=== PATIENT | female | born 1990 | race African-American/Black ===

== ENCOUNTER 2019-05-30 08:46 | Emergency (ER) | payer BC, OTHER ==
[~2019-05-30] VITALS: Ht 157.5 cm; Wt 54.4 kg
[~2019-05-30 08:46] MED LIST: ACETAMINOPHEN-1 EAC1 PO; NKM; OMEPRAZOLE20 M2 ORAL
[2019-05-30] MEDS ORDERED: NKM (08:48)
--- NOTE | 2019-05-30 08:50 | NUR ---
ED Nurse Note: Patient brought in by ambulance [id number] work c/o abdominal pain for 1 week. patient reports this has been her ongoing issue, but for the past 1 week, it was worse. patient reports she vomits after eating. patient is alert awake x4 ambulatory, breathing unlabored and even, speaking in full sentences.
[2019-05-30 08:56] VITALS: BP 121/91
--- NOTE | 2019-05-30 08:58 | NUR ---
ED Nurse Note: patient reports epigastic pain 7/10, nonradiating, actively vomiting yellow clear fluid, patient reports she was recently hospitalized about 1 month ago for the same issue.
[2019-05-30] MEDS ORDERED: Lidocaine 2% Visc 15ml soln ORAL ONE (09:15)
[2019-05-30] MEDS ORDERED: Mylanta II UD 30ml ORAL ONE (09:15)
[2019-05-30] MEDS ORDERED: Capsaicin 0.075% Cream TOPIC ONE (09:30)
[2019-05-30 09:39] LABS: ANION GAP 9 mmol/L (5-15); BLOOD UREA NITROGEN 8 mg/dL (7-18); CALCIUM 8.9 MG/DL (8.5-10.1); CARBON DIOXIDE 26 MMOL/L (21-32); CHLORIDE 107 MMOL/L (98-107); CREATININE 1.1 MG/DL (0.55-1.30); POTASSIUM 3.2 MMOL/L (3.5-5.1); SODIUM 142 MMOL/L (136-145)
[2019-05-30 09:40] LABS: BASOPHILS % (AUTO) 0.8 % (0.0-2.0); EOSINOPHILS % (AUTO) 2.8 % (0.0-3.0); HEMATOCRIT 35.6 % (37.0-47.0); HEMOGLOBIN 11.3 G/DL (12.0-16.0); LYMPHOCYTES % (AUTO) 24.8 % (20.0-45.0); MEAN CORPUSCULAR VOLUME 74 FL (80-99); MONOCYTES % (AUTO) 5.6 % (1.0-10.0); NEUTROPHILS % (AUTO) 65.9 % (45.0-75.0); PLATELET COUNT 362 K/UL (150-450); RED BLOOD COUNT 4.84 M/UL (4.20-5.40); RED CELL DISTRIBUTION WIDTH 12.4 % (11.6-14.8); WHITE BLOOD COUNT 9.4 K/UL (4.8-10.8)
--- NOTE | 2019-05-30 09:43 | NUR ---
ED Nurse Note: patient reports she is unable to give urine sample yet. IVF infusing as ordered.
[2019-05-30 09:44] LABS: ALANINE AMINOTRANSFERASE 25 U/L (12-78); ALBUMIN 3.7 G/DL (3.4-5.0); ALKALINE PHOSPHATASE 63 U/L (46-116); ASPARTATE AMINO TRANSFERASE 21 U/L (15-37); BILIRUBIN,TOTAL 0.9 MG/DL (0.2-1.0)
--- NOTE | 2019-05-30 09:52 | Emergency Room Report ---
History of Present Illness General Chief Complaint: Abdominal Pain Source: Patient, EMS Present Illness HPI This patient is brought in by EMS for epigastric pain and recurrent vomiting. The patient states that 4 years ago she did undergo a cholecystectomy. She states that she gets recurrent abdominal pain and vomiting episodes since that time. She states she is not been told why she has the symptoms. She states this episode is typical for her and started 2 days ago. She describes the pain in her epigastrium with associated recurrent nausea and vomiting. She admits to regular marijuana use. She has never heard of cannabis hyperemesis syndrome. She denies fever or chills. She denies chest pain or shortness of breath. She denies headache or neck pain. She has no other complaints. Allergies: Coded Allergies: No Known Allergies (Unverified , 07/25/13) Patient History Past Medical History: see triage record, other - cyclic vomiting syndrome, undifferentiated abdominal pain Past Surgical History: wallace Social History: Reports: drug use - Marijuana; Denies: smoking, alcohol use Last Menstrual Period: 05/2019 Now: No Reviewed Nursing Documentation: PMH: Agreed; PSxH: Agreed Nursing Documentation-PMH Past Medical History: No Stated History Review of Systems All Other Systems: negative except mentioned in HPI Physical Exam Vital Signs Date Time Temp Pulse Resp B/P (MAP) Pulse Ox O2 Delivery O2 Flow Rate FiO2 05/30/19 08:44 98.6 82 16 137/82 (100) 98 Room Air Sp02 EP Interpretation: reviewed, normal General Appearance: no apparent distress, alert, GCS 15, non-toxic Head: normocephalic, atraumatic Eyes: bilateral eye normal inspection, bilateral eye PERRL ENT: hearing grossly normal, normal pharynx, no angioedema, normal voice Neck: full range of motion, supple/symm/no masses Respiratory: chest non-tender, lungs clear, normal breath sounds, no respiratory distress, no retraction, no accessory muscle use, speaking full sentences Cardiovascular #1: regular rate, rhythm, no edema Gastrointestinal: normal bowel sounds, soft, non-distended, no guarding, no rebound, tenderness - TTP in the epigastrium Rectal: deferred Musculoskeletal: back normal, gait/station normal, normal range of motion, non- tender Neurologic: alert, oriented x3, responsive, motor strength/tone normal, sensory intact, speech normal Psychiatric: judgement/insight normal, memory normal, mood/affect normal, no suicidal/homicidal ideation Skin: no rash, normal color Medical Decision Making Diagnostic Impression: Primary Impression: Cannabis hyperemesis syndrome concurrent with and due to cannabis abuse ER Course This patient has a presentation consistent with cannabis hyperemesis syndrome. She also has chronic pain. She was given acid reflux medications, capsaicin cream to her abdomen and pain medications. I did not identify an emergency medical condition. The patient had improvement in her symptoms at the time of discharge. The patient is given return precautions and follow-up instructions. Laboratory Tests Test 05/30/19 09:15 05/30/19 10:25 White Blood Count 9.4 K/UL (4.8-10.8) Red Blood Count 4.84 M/UL (4.20-5.40) Hemoglobin 11.3 G/DL (12.0-16.0) L Hematocrit 35.6 % (37.0-47.0) L Mean Corpuscular Volume 74 FL (80-99) L Mean Corpuscular Hemoglobin 23.3 PG (27.0-31.0) L Mean Corpuscular Hemoglobin Concent 31.7 G/DL (32.0-36.0) L Red Cell Distribution Width 12.4 % (11.6-14.8) Platelet Count 362 K/UL (150-450) Mean Platelet Volume 5.8 FL (6.5-10.1) L Neutrophils (%) (Auto) 65.9 % (45.0-75.0) Lymphocytes (%) (Auto) 24.8 % (20.0-45.0) Monocytes (%) (Auto) 5.6 % (1.0-10.0) Eosinophils (%) (Auto) 2.8 % (0.0-3.0) Basophils (%) (Auto) 0.8 % (0.0-2.0) Sodium Level 142 MMOL/L (136-145) Potassium Level 3.2 MMOL/L (3.5-5.1) L Chloride Level 107 MMOL/L (98-107) Carbon Dioxide Level 26 MMOL/L (21-32) Anion Gap 9 mmol/L (5-15) Blood Urea Nitrogen 8 mg/dL (7-18) Creatinine 1.1 MG/DL (0.55-1.30) Estimate Glomerular Filtration Rate > 60 mL/min (>60) Glucose Level 110 MG/DL (74-106) H Calcium Level 8.9 MG/DL (8.5-10.1) Total Bilirubin 0.9 MG/DL (0.2-1.0) Aspartate Amino Transferase (AST) 21 U/L (15-37) Alanine Aminotransferase (ALT) 25 U/L (12-78) Alkaline Phosphatase 63 U/L (46-116) Total Protein 7.3 G/DL (6.4-8.2) Albumin 3.7 G/DL (3.4-5.0) Globulin 3.6 g/dL Albumin/Globulin Ratio 1.0 (1.0-2.7) Lipase 79 U/L (73-393) Urine Color Yellow Urine Appearance Clear Urine pH 7 (4.5-8.0) Urine Specific [place] 1.015 (1.005-1.035) Urine Protein 1+ (NEGATIVE) H Urine Glucose (UA) Negative (NEGATIVE) Urine Ketones 1+ (NEGATIVE) H Urine Blood 4+ (NEGATIVE) H Urine Nitrite Negative (NEGATIVE) Urine Bilirubin Negative (NEGATIVE) Urine Urobilinogen Normal MG/DL (0.0-1.0) Urine Leukocyte Esterase 1+ (NEGATIVE) H Urine RBC 5-10 /HPF (0 - 2) H Urine WBC 2-4 /HPF (0 - 2) Urine Squamous Epithelial Cells Few /LPF (NONE/OCC) Urine Bacteria Few /HPF (NONE) Urine Mucus Few /LPF (NONE/OCC) H Urine HCG, Qualitative Negative (NEGATIVE) Urine Opiates Screen Negative (NEGATIVE) Urine Barbiturates Screen Negative (NEGATIVE) Phencyclidine (PCP) Screen Negative (NEGATIVE) Urine Amphetamines Screen Negative (NEGATIVE) Urine Benzodiazepines Screen Negative (NEGATIVE) Urine Cocaine Screen Negative (NEGATIVE) Urine Marijuana (THC) Screen Positive (NEGATIVE) H Last Vital Signs Date Time Temp Pulse Resp B/P (MAP) Pulse Ox O2 Delivery O2 Flow Rate FiO2 05/30/19 08:57 70 16 Room Air 05/30/19 08:56 98.6 121/91 100 Status: improved Disposition: HOME, SELF-CARE Condition: Improved Patient Instructions: Abdominal Pain, Adult Chasidy Vela DO May 30, 2019 09:52
--- NOTE | 2019-05-30 10:30 | NUR ---
ED Nurse Note: UA SENT TO LAB
[2019-05-30 10:33] LABS: APPEARANCE,URINE CLEAR; BILIRUBIN, URINE NEGATIVE (NEGATIVE); GLUCOSE, URINE (UA) NEGATIVE (NEGATIVE); KETONES,URINE 1+ (NEGATIVE); LEUKOCYTE ESTERASE ,URINE 1+ (NEGATIVE); NITRITE,URINE NEGATIVE (NEGATIVE); PH,URINE 7 (4.5-8.0); PROTEIN,URINE 1+ (NEGATIVE); UROBILINOGEN,URINE NORMAL MG/DL (0.0-1.0)
[2019-05-30 10:35] LABS: COLOR,URINE YELLOW
[2019-05-30 11:38] VITALS: BP 118/86
--- NOTE | 2019-05-30 13:36 | NUR ---
ED Nurse Note: notified Dr. Vela regarding patient c/o pain, patient reports capsaicin cream is not working for her.
[2019-05-30] MEDS ORDERED: Morphine Sulfate 4mg/ml Inj (IV USE ONLY) IVP ONE (13:45)
--- NOTE | 2019-05-30 14:05 | NUR ---
ED Nurse Note: patient resting in bed eyes closed, alseep after morphine was given
[2019-05-30 14:22] VITALS: BP 118/86
--- NOTE | 2019-05-30 14:22 | NUR ---
ER DISCHARGE NOTE: Patient is cleared to be discharged per ERMD DR SALINAS, pt is aox4, on room air, with stable vital signs. pt was given dc instructions, pt was able to verbalize understanding, pt id band and iv site removed without complications. pt is able to ambulate with steady gait. pt took all belongings.
--- NOTE | 2019-05-30 14:25 | NUR ---
ED Nurse Note: RN instructed patient that she can stay for intractable pain and RN passed message from Dr. Vela that there is no indication for more narcotic pain medication and MD will not prescribe more narcotic pain medication in the ED. patient reports she will leave.
== END 2019-05-30 14:25 | disposition home or self-care (01) ==
LOC: EDBD 08:46 → EMR 10:05
DX: F12.188 Cannabis abuse with other cannabis-induced disorder (principal); R11.10 Vomiting, unspecified; G89.29 Other chronic pain; R10.9 Unspecified abdominal pain
CPT/HCPCS: 36415; 80053; 80307; 81003; 81025; 83690; 85025; 96361; 96375; 99284; J2270; J2405; S0028

== ENCOUNTER 2019-10-30 07:38 | Emergency (ER) | payer BC, OTHER ==
[~2019-10-30] VITALS: Ht 157.5 cm; Wt 52.2 kg
[2019-10-30 07:40] VITALS: BP 118/72
--- NOTE | 2019-10-30 07:40 | NUR ---
ED Nurse Note: Pt walked in from home c/o lower abdominal pain 10/10 x 3 days. Pt c/o nausea and vomiting as well, but denies diarrhea. Respirations even and unlabored on room air. Vitals stable as documented. Pt is restless and moaning in pain.
[2019-10-30] MEDS ORDERED: Pantoprazole Inj IVP ONE (07:45)
[2019-10-30] MEDS ORDERED: fentaNYL 100 mcg/2 mL IV ONE (07:45)
--- NOTE | 2019-10-30 08:03 | Emergency Room Report ---
History of Present Illness General Chief Complaint: Abdominal Pain Source: Patient, EMS Present Illness HPI Patient is a 29-year-old female denies any significant past medical history but states that she had a cholecystectomy in the past who presents to the ER complaining of epigastric pain for 3 days. Patient complains of nausea and vomiting. She denies any diarrhea, fever or chills. She states that her last menstrual period ended today. Patient was brought in by EMS. She denies any chest pain or shortness of breath. Patient denies any recent travel. She denies any rash. Allergies: Coded Allergies: No Known Allergies (Unverified , 07/25/13) Patient History Past Medical History: none Past Surgical History: wallace Social History: Denies: smoking, alcohol use, drug use Nursing Documentation-[facility] Past Medical History: No Stated History Review of Systems All Other Systems: negative except mentioned in HPI Physical Exam Vital Signs Date Time Temp Pulse Resp B/P (MAP) Pulse Ox O2 Delivery O2 Flow Rate FiO2 10/30/19 07:35 98.1 89 20 112/68 (83) 99 Room Air Sp02 EP Interpretation: reviewed, normal General Appearance: no apparent distress, alert, GCS 15, non-toxic Head: normocephalic, atraumatic Eyes: bilateral eye normal inspection, bilateral eye PERRL ENT: hearing grossly normal, normal pharynx, no angioedema, normal voice Neck: full range of motion, supple/symm/no masses Respiratory: chest non-tender, lungs clear, normal breath sounds, speaking full sentences Cardiovascular #1: regular rate, rhythm, no edema Gastrointestinal: normal bowel sounds, soft, non-distended, no guarding, no rebound, tenderness - Epigastric tenderness to palpation with no guarding or rebound Rectal: deferred Genitourinary: normal inspection, no CVA tenderness Musculoskeletal: back normal, normal range of motion, calf tenderness, gait/ station normal, non-tender Neurologic: alert, motor strength/tone normal, oriented x3, sensory intact, responsive, speech normal Psychiatric: judgement/insight normal, memory normal, mood/affect normal, no suicidal/homicidal ideation Lymphatic: no adenopathy Medical Decision Making ER Course Patient given IV fluids, IV narcotics and Zofran. Patient's pain has improved and she is no longer vomiting. Labs demonstrate no significant acute abnormalities. Specifically no elevated white blood cell count. She is afebrile. CT demonstrates no acute intra-abdominal pathology. Patient has teratoma. I have given her copy of her CT result to follow-up with her computed tomography scanner operator. After discussing risks and benefits of further diagnostics, treatment plans, as well as indications for and risks of admission, the patient is agreeable to being discharged home. I have explained that their evaluation and treatment in the emergency department today is an important step towards them achieving better health but that their evaluation today is not intended to replace further evaluation and treatment by a physician in their local clinic. I have explained that while the current findings suggest no immediate life threatening emergency they will require further evaluation and treatment by a physician of their choice in their area. They understand that it will be necessary for them to review the final reports of their ED visit with their clinic physician. We have reviewed indications for return to the Emergency Department. I have explained that additional time may need to pass and/or additional testing as an outpatient may be necessary before a definitive diagnosis can be made. They tell me they are willing to follow up as instructed within the timeframe I recommend. They appear to understand what we discussed. Additionally they understand that if they are unable to be seen by an outpatient physician they are welcome, and in fact should, return to the Emergency Department for a repeat evaluation. The patient is stable at time of discharge. Reevaluation Time: 10:47 Last Vital Signs Date Time Temp Pulse Resp B/P (MAP) Pulse Ox O2 Delivery O2 Flow Rate FiO2 10/30/19 07:35 98.1 89 20 112/68 (83) 99 Room Air Status: improved Disposition: HOME, SELF-CARE Condition: Stable Scripts Famotidine* (Pepcid 20mg tablet*) 20 Mg Tablet 20 MG ORAL DAILY, #30 TAB 0 Refills Prov: Constance Rodriguez M.D. 10/30/19 Ondansetron (Zofran) 4 Mg Tablet 4 MG ORAL Q8H PRN for Nausea & Vomiting, #10 TAB 0 Refills Prov: Constance Rodriguez M.D. 10/30/19 Oxycodone/Acetaminophen 5-325* (PERCOCET 5-325 MG TABLET*) 1 Each Tablet 1 TAB ORAL Q6H PRN for For Pain, #15 TAB 0 Refills Prov: Constance Rodriguez M.D. 10/30/19 Additional Instructions: Patient to follow-up at her local clinic and with her computed tomography scanner operator for her teratoma. Patient discharged in stable improved condition. Constance Rodriguez M.D. Oct 30, 2019 08:03
[2019-10-30 08:07] LABS: BASOPHILS % (AUTO) 1.1 % (0.0-2.0); EOSINOPHILS % (AUTO) 0.7 % (0.0-3.0); HEMATOCRIT 38.8 % (37.0-47.0); HEMOGLOBIN 12.7 G/DL (12.0-16.0); LYMPHOCYTES % (AUTO) 22.1 % (20.0-45.0); MEAN CORPUSCULAR VOLUME 72 FL (80-99); MONOCYTES % (AUTO) 5.7 % (1.0-10.0); NEUTROPHILS % (AUTO) 70.3 % (45.0-75.0); PLATELET COUNT 426 K/UL (150-450); RED BLOOD COUNT 5.36 M/UL (4.20-5.40); RED CELL DISTRIBUTION WIDTH 11.8 % (11.6-14.8); WHITE BLOOD COUNT 10.8 K/UL (4.8-10.8)
[2019-10-30 08:15] LABS: APPEARANCE,URINE SLIGHTLY CLOUDY; BILIRUBIN, URINE NEGATIVE (NEGATIVE); GLUCOSE, URINE (UA) NEGATIVE (NEGATIVE); KETONES,URINE NEGATIVE (NEGATIVE); LEUKOCYTE ESTERASE ,URINE 1+ (NEGATIVE); NITRITE,URINE NEGATIVE (NEGATIVE); PH,URINE 6 (4.5-8.0); PROTEIN,URINE 2+ (NEGATIVE); UROBILINOGEN,URINE 1 MG/DL (0.0-1.0)
[2019-10-30] MEDS ORDERED: Omnipaque-300 100ml vial INJ PRN (08:15)
[2019-10-30 08:16] LABS: COLOR,URINE YELLOW
[2019-10-30 08:25] LABS: ANION GAP 14 mmol/L (5-15); BLOOD UREA NITROGEN 16 mg/dL (7-18); CALCIUM 9.7 MG/DL (8.5-10.1); CARBON DIOXIDE 22 MMOL/L (21-32); CHLORIDE 103 MMOL/L (98-107); POTASSIUM 3.3 MMOL/L (3.5-5.1); SODIUM 139 MMOL/L (136-145)
[2019-10-30 08:29] LABS: ALANINE AMINOTRANSFERASE 25 U/L (12-78); ALBUMIN 3.7 G/DL (3.4-5.0); ALBUMIN/GLOBULIN RATIO 0.8 (1.0-2.7); ALKALINE PHOSPHATASE 75 U/L (46-116); ASPARTATE AMINO TRANSFERASE 23 U/L (15-37); BILIRUBIN,TOTAL 0.8 MG/DL (0.2-1.0)
[2019-10-30] MEDS ORDERED: Morphine Sulfate 4mg/ml Inj (IV USE ONLY) IVP ONE ×2 (08:30→09:15)
--- NOTE | 2019-10-30 08:58 | NUR ---
ED Nurse Note: Pt in CT
--- NOTE | 2019-10-30 10:25 | Diagnostic Imaging Report ---
Clinical Indication: Abdominal pain, nausea, vomiting Technique: No oral contrast utilized, per emergency room physician request IV administration nonionic contrast. Venous phase spiral acquisition obtained through the abdomen and pelvis. Multiplanar reconstructions were generated. Total dose length product 161 mGycm. CTDIvol(s) 3 mGy. Dose reduction achieved using automated exposure control Comparison: none. Reference made to abdominal sonogram of 07/25/2013 Findings: Lack of enteric contrast limits assessment of the GI tract. What is probably a normal appendix is visualized. No evidence of colonic diverticulosis or diverticulitis. No small bowel distention. No free or loculated intraperitoneal gas or fluid is evident. The distal esophagus, stomach, duodenum are unremarkable. The gallbladder has been removed. The liver demonstrates focal fat deposition in the usual left lobe location adjacent to the falciform ligament. No biliary ductal dilatation. The pancreas, spleen, adrenals are unremarkable. The left kidney demonstrates slight relative enlargement and equivocal slightly heterogeneous parenchymal attenuation. There are small subcentimeter left renal lesions which are too small to characterize. The left adnexal region, there is a mass which measures 4.8 x 3 x 4.1 cm. It consists mostly of fat, but contains some soft tissue elements and a calcification anteriorly. The uterus and right ovary are unremarkable Impression: Limited assessment of the GI tract, due to lack of enteric contrast administration Slightly asymmetrically enlarged left kidney. Equivocal slightly heterogeneous parenchymal attenuation, if real could indicate mild enteritis changes. 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
[2019-10-30] MEDS ORDERED: PERCOCET 5-3251 EACH ORAL (10:38)
[2019-10-30] MEDS ORDERED: ZOFRAN4 MG ORAL (10:38)
[2019-10-30] MEDS ORDERED: FAMOTIDINE20 MG ORAL (10:39)
[2019-10-30 11:15] VITALS: BP 118/72
--- NOTE | 2019-10-30 11:15 | NUR ---
ER DISCHARGE NOTE: Patient is cleared to be discharged per ERMD, pt is aox4, on room air, with stable vital signs. pt was given dc and prescription instructions, pt was able to verbalize understanding, pt id band and iv site removed without complications. pt is able to ambulate with steady gait. pt took all belongings.
[2019-10-30] MEDS ORDERED: ZANTAC150 MG ORAL (15:18)
[2019-10-30] MEDS ORDERED: LIDOCAINE VISC100 ML ORAL (15:18)
== END 2019-10-30 11:15 | disposition home or self-care (01) ==
LOC: EDBD 07:38 → EMR 08:00
DX: D28.7 Benign neoplasm of other specified female genital organs (principal)
CPT/HCPCS: 36415; 74177; 80053; 81003; 81025; 83690; 85025; 86710; 96361; 96374; 96375; 96376; 99284; C9113; J2270; J2405; J3010; J7030; Q9967; J8499

== ENCOUNTER 2019-10-30 12:19 | Emergency (ER) | payer BC, OTHER ==
[~2019-10-30] VITALS: Ht 157.5 cm; Wt 51.7 kg
[~2019-10-30 12:19] MED LIST changes: +FAMOTIDINE20 MG ORAL; +PERCOCET 5-3251 EACH ORAL; +ZOFRAN4 MG ORAL
[2019-10-30 12:43] VITALS: BP 144/86
--- NOTE | 2019-10-30 12:43 | NUR ---
ED Nurse Note: PT WALKED IN DUE TO ABD PAIN WITH N/V SINCE MONDAY.
[2019-10-30] MEDS ORDERED: Mylanta II UD 30ml ORAL ONE (14:15)
[2019-10-30] MEDS ORDERED: Lidocaine 2% Visc 15ml soln ORAL ONE (14:15)
--- NOTE | 2019-10-30 15:10 | Emergency Room Report ---
History of Present Illness General Chief Complaint: Abdominal Pain Source: Patient Present Illness HPI 29-year-old female presents to the emergency department complaining of 10 out of 10 severity epigastric abdominal burning sensation x2 days. Patient reports she was just seen here in the emergency department this a.m. however she has not had any improvement of her symptoms. She denies any new symptoms since her previous visit earlier today. Patient denies suspicion of . She denies vomiting up any blood she states she has mainly nausea and vomiting. She denies constipation or diarrhea. She denies fevers or chills. No other aggravating or relieving factors at this time. She reports she has been having similar symptoms for the past few months and she was seen last month by her primary care provider who did an exam which required putting a camera down her throat. Patient states that she has a follow-up appointment this Monday for results of that examination. Otherwise she denies history of acid reflux. Allergies: Coded Allergies: No Known Allergies (Unverified , 07/25/13) Patient History Past Medical History: none Past Surgical History: none Pertinent Family History: none Last Menstrual Period: CURRENTLY ON HER PERIOD Now: No Reviewed Nursing Documentation: PMH: Agreed; PSxH: Agreed Review of Systems All Other Systems: negative except mentioned in HPI Physical Exam Vital Signs Date Time Temp Pulse Resp B/P (MAP) Pulse Ox O2 Delivery O2 Flow Rate FiO2 10/30/19 12:43 98.1 73 19 144/86 (105) 100 Room Air Sp02 EP Interpretation: reviewed, normal General Appearance: no apparent distress, alert, GCS 15, non-toxic Head: normocephalic, atraumatic Eyes: bilateral eye normal inspection, bilateral eye PERRL ENT: hearing grossly normal, normal voice Neck: full range of motion Respiratory: lungs clear, normal breath sounds, speaking full sentences Cardiovascular #1: regular rate, rhythm, no edema Gastrointestinal: normal bowel sounds, soft, tenderness - mid-epigastric tenderness very localized Rectal: deferred Genitourinary: normal inspection, no CVA tenderness Musculoskeletal: normal range of motion, gait/station normal, non-tender Neurologic: alert, motor strength/tone normal, oriented x3, sensory intact, responsive, speech normal Psychiatric: judgement/insight normal Skin: normal color, normal inspection Medical Decision Making PA Attestation Dr. Rodriguez Is my supervising Physician whom patient management has been discussed with. Diagnostic Impression: Primary Impression: Epigastric abdominal pain ER Course 29-year-old female presents to the emergency department complaining of 10 out of 10 severity epigastric abdominal burning sensation x2 days. Patient reports she was just seen here in the emergency department this a.m. however she has not had any improvement of her symptoms. She denies any new symptoms since her previous visit earlier today. Patient denies suspicion of . She denies vomiting up any blood she states she has mainly nausea and vomiting. She denies constipation or diarrhea. She denies fevers or chills. No other aggravating or relieving factors at this time. She reports she has been having similar symptoms for the past few months and she was seen last month by her primary care provider who did an exam which required putting a camera down her throat. Patient states that she has a follow-up appointment this Monday for results of that examination. Otherwise she denies history of acid reflux. Ddx considered but are not limited to GE, colitis, acute appy, SBO, H.pylori, Gastritis, PNA, pericarditis just to name a few. Vital signs: pt. is afebrile, H&PE are most consistent with Gastritis - no evidence to suggest acute abdomen on physical exam. ORDERS: -Reviewed laboratory results from this morning which were unremarkable. -Urine hCG: Negative ED INTERVENTIONS: -Mylanta PO -Lidocaine PO -Pepcid PO Patient reports complete relief of her symptoms after GI cocktail. Discussed with patient that she needs to follow-up with her primary care doctor and GI specialist for further evaluation and/or treatment. -I do not identify an emergent condition at this time. With current presentation , pt. is stable for close outpatient follow up and conservative treatment. D/ w pt. to return promptly to ED with worsening or new symptoms.- Pt. verbalizes' understanding and agreement with proposed treatment plan.proposed treatment plan. -I do not identify an emergent condition at this time. With current presentation , pt. is stable for close outpatient follow up and conservative treatment. D/ w pt. to return promptly to ED with worsening or new symptoms.- Pt. (and or responsible alliance party) verbalizes' understanding and agreement with proposed treatment plan.proposed treatment plan. DISCHARGE: At this time pt. is stable for d/c to home. Will provide printed patient care instructions, and any necessary prescriptions. Care plan and follow up instructions have been discussed with the patient prior to discharge. Labs Test 10/30/19 13:50 Urine HCG, Qualitative Negative (NEGATIVE) Last Vital Signs Date Time Temp Pulse Resp B/P (MAP) Pulse Ox O2 Delivery O2 Flow Rate FiO2 10/30/19 12:43 98.1 73 19 144/86 (105) 100 Room Air Status: improved Disposition: HOME, SELF-CARE Condition: Stable Patient Instructions: Abdominal Pain, Adult, Gastritis, Adult Additional Instructions: Take medications as directed. Follow up with a Primary Care Provider in 3-5 days, even if your symptoms have resolved. Return sooner to ED if new symptoms occur, or current symptoms become worse. - Please note that this Emergency Department Report was dictated using [employer] technology software, occasionally this can lead to erroneous entry secondary to interpretation by the dictation equipment. Suzanna Auguste Oct 30, 2019 15:10
[2019-10-30] MEDS ORDERED: ZANTAC150 MG ORAL (15:18)
[2019-10-30] MEDS ORDERED: LIDOCAINE VISC100 ML ORAL (15:18)
[2019-10-30 15:19] VITALS: BP 133/84
--- NOTE | 2019-10-30 15:20 | NUR ---
ER DISCHARGE NOTE: Patient is cleared to be discharged per ERMD, pt is aox4, on room air, with stable vital signs. pt was given dc and prescription instructions, pt was able to verbalize understanding, pt id bandremoved. pt is able to ambulate with steady gait. pt took all belongings.
== END 2019-10-30 15:20 | disposition home or self-care (01) ==
LOC: EMR 15:14
DX: R10.13 Epigastric pain (principal)
CPT/HCPCS: 81025; 99283